=== PATIENT | male | born 1965 | race Caucasian/White ===

== ENCOUNTER 2021-01-21 23:28 | Inpatient (IN) | payer OTHER ==
[2021-01-22] MEDS ORDERED: ONDANSETRON 4 MG/2 ML VIAL ONE (01:09)
[2021-01-22] MEDS ORDERED: NA CHLORIDE 0.9% 1,000 ML ONE ×2 (01:09→02:01)
[2021-01-22 01:10] LABS: Absolute Lymphocytes (CBC) 1.2 K/uL (0.7-4.9); Basophils % 0.2 % (0-1.3); Hematocrit 50.4 % (39.6-49.0); MPV 8.5 fL (7.6-11.3); RBC Red Blood Cell Count 5.65 M/uL (4.33-5.43)
[2021-01-22 01:18] LABS: ALT/SGPT 27 U/L (12-78); AST/SGOT 13 U/L (15-37); Albumin 4.5 g/dL (3.4-5.0); Alkaline Phosphatase 130 U/L (45-117); BUN Blood Urea Nitrogen 24 mg/dL (7-18); Bilirubin Direct 0.1 mg/dL (0-0.2); Bilirubin Total 0.7 mg/dL (0.2-1.0); Glucose Level 314 mg/dL (74-106); Lipase 94 U/L (73-393); Protein, Total 8.7 g/dL (6.4-8.2); Sodium Level 131 mmol/L (136-145); Troponin (Emerg Dept Use Only) < 0.02 ng/mL (0.0-0.045)
[2021-01-22 01:19] LABS: Bicarbonate 7 mmol/L (21-32)
--- NOTE | 2021-01-22 01:35 | EDPHYS ---
Physician Documentation [facility] Name: Kiel Contreras Age: 55 yrs Sex: Male : 1965 Arrival Date: 01/21/2021 Time: 23:28 Bed 7 Private MD: ED Physician Jose F Cook HPI: 01/22 01:35 This 55 yrs old Male presents to ER via Ambulatory with complaints of tw4 Vomiting. 01:35 The patient presents to the emergency department with nausea, that is moderate, tw4 vomiting. Onset: The symptoms/episode began/occurred today. Possible causes: flare up of bowel problem. The symptoms are aggravated by nothing. The symptoms are alleviated by nothing. Associated signs and symptoms: The patient has no apparent associated signs or symptoms. Severity of symptoms: At their worst the symptoms were moderate in the emergency department the symptoms are unchanged. The patient has not experienced similar symptoms in the past. Historical: - Allergies: 00:17 No Known Allergies; em - PMHx: 00:17 Diabetes - NIDDM; em - PSHx: 00:17 None; em - Immunization history:: Adult Immunizations up to date. - Social history:: Smoking status: Patient reports use of chewing tobacco. ROS: 01:35 Constitutional: Negative for fever, chills, and weight loss, Eyes: Negative for injury, tw4 pain, redness, and discharge, Cardiovascular: Negative for chest pain, palpitations, and edema, Respiratory: Negative for shortness of breath, cough, wheezing, and pleuritic chest pain, Back: Negative for injury and pain, MS/Extremity: Negative for injury and deformity, Skin: Negative for injury, rash, and discoloration, Neuro: Negative for headache, weakness, numbness, tingling, and seizure. 01:35 Abdomen/GI: Positive for nausea, vomiting, Negative for abdominal pain, nausea and vomiting, constipation, abdominal cramps, abdominal distension, anorexia, dysphagia, hematemesis, black/tarry stool, rectal pain, rectal bleeding, bowel incontinence, flatulence. Exam: 01:35 Constitutional: This is a well developed, well nourished patient who is awake, alert, tw4 and in no acute distress. Head/Face: Normocephalic, atraumatic. Chest/axilla: Normal chest wall appearance and motion. Nontender with no deformity. No lesions are appreciated. Cardiovascular: Regular rate and rhythm with a normal S1 and S2. No gallops, murmurs, or rubs. Normal PMI, no JVD. No pulse deficits. Respiratory: Lungs have equal breath sounds bilaterally, clear to auscultation and percussion. No rales, rhonchi or wheezes noted. No increased work of breathing, no retractions or nasal flaring. Abdomen/GI: Soft, non-tender, with normal bowel sounds. No distension or tympany. No guarding or rebound. No evidence of tenderness throughout. Skin: Warm, dry with normal turgor. Normal color with no rashes, no lesions, and no evidence of cellulitis. MS/ Extremity: Pulses equal, no cyanosis. Neurovascular intact. Full, normal range of motion. Neuro: Awake and alert, GCS 15, oriented to person, place, time, and situation. Cranial nerves II-XII grossly intact. Motor strength 5/5 in all extremities. Sensory grossly intact. Cerebellar exam normal. Normal gait. Vital Signs: 00:16 BP 124 / 73; Pulse 124; Resp 18; Temp 98.7; Pulse Ox 99% on R/A; Weight 83.46 kg; em Height 5 ft. 8 in. (172.72 cm); Pain 0/10; 01:20 BP 150 / 69; Pulse 123; Resp 18; Pulse Ox 100% on R/A; jb4 02:30 BP 118 / 86; Pulse 122; Resp 17; Pulse Ox 99% on R/A; jb4 00:16 Body Mass Index 27.98 (83.46 kg, 172.72 cm) em MDM: 00:22 Patient medically screened. tw4 01:36 Differential diagnosis: Nonspecific abd pain, gastritis, cholecystitis. Data reviewed: tw4 vital signs, nurses notes. Data interpreted: Pulse oximetry: Interpretation: normal. Counseling: I had a detailed discussion with the patient and/or guardian regarding: the historical points, exam findings, and any diagnostic results supporting the discharge/admit diagnosis, lab results. Special discussion: Based on the patient's Hx, exam, and Dx evaluation, there is no indication for emergent surgery or inpatient Tx. It is understood by the patient/guardian that if the Sx's persist or worsen they need to return immediately for re-evaluation. I discussed with the patient/guardian in detail that at this point there is no indication for admission to the hospital. It is understood, however, that if the symptoms persist or worsen the patient needs to return immediately for re-evaluation. 01:38 Physician consultation: Jay Ayers MD was contacted at 01:29, and will see patient [email or web address] in ED. 01/22 00:18 Order name: Basic Metabolic Panel; Complete Time: 01:51 01/22 01:29 Interpretation: Normal except: NA 131; CL 93; CO2 7; GLUC 314; BUN 24; CRE 1.80; GFR 39.01/22 00:18 Order name: CBC with Diff; Complete Time: 03:35 01/22 01:29 Interpretation: Normal except: WBC 20.20; RBC 5.65; HCT 50.4; ABBY% 87.9; LYM% 6.0; PLT tw4 538. 01/22 00:18 Order name: Hepatic Function; Complete Time: 01:51 01/22 01:29 Interpretation: Normal except: AST 13; ALK 130; TP 8.7; GLOB 4.2. 01/22 00:18 Order name: Lipase; Complete Time: 01:51 01/22 01:29 Interpretation: Within normal limits: LIP 94. 01/22 00:18 Order name: Troponin (emerg Dept Use Only); Complete Time: 01:51 01/22 01:29 Interpretation: Within normal limits: TROPED < 0.02. 01/22 01:12 Order name: Manual Differential; Complete Time: 03:35 EDMS 01/22 01:23 Order name: COVID-19 : Document "Date of Symptom Onset" if Symptomatic. em 01/22 01:33 Order name: Acetone, Serum; Complete Time: 01:51 01/22 01:33 Order name: ABG 01/22 01:33 Order name: Blood Culture Adult (2) 01/22 01:33 Order name: Procalcitonin; Complete Time: 02:37 01/22 01:34 Order name: ABG Arterial Blood Gas; Complete Time: 03:35 EDMS 01/22 01:34 Order name: Lactate; Complete Time: 03:35 la1 01/22 01:38 Order name: Magnesium la1 01/22 01:38 Order name: Phosphorus la1 01/22 01:41 Order name: Phosphorus; Complete Time: 01:51 EDMS 01/22 01:41 Order name: Magnesium; Complete Time: 01:51 EDMS 01/22 02:44 Order name: Glucose, Ancillary Testing; Complete Time: 02:53 EDMS 01/22 03:40 Order name: SARS-COV-2 RT PCR; Complete Time: 04:06 EDMS 01/22 03:52 Order name: Glucose, Ancillary Testing; Complete Time: 04:00 EDMS 01/22 04:48 Order name: Glucose, Ancillary Testing EDMS 01/22 05:01 Order name: CBC with Automated Diff EDMS 01/22 05:27 Order name: Hemoglobin A1c EDMS 01/22 05:45 Order name: Basic Metabolic Panel EDMS 01/22 05:45 Order name: Lipid Profile EDMS 01/22 05:45 Order name: Glucose, Ancillary Testing EDMS 01/22 06:54 Order name: Glucose, Ancillary Testing EDMS 01/22 08:00 Order name: Glucose, Ancillary Testing EDMS 01/22 00:18 Order name: IV Saline Lock; Complete Time: 00:58 tw4 01/22 00:18 Order name: Labs collected and sent; Complete Time: 00:58 tw4 01/22 00:18 Order name: EKG; Complete Time: 00:19 tw4 01/22 01:33 Order name: CT Abd/Pelvis - Without Contrast tw4 01/22 01:38 Order name: Chest Single View XRAY la1 01/22 07:15 Order name: RAD EDMS 01/22 08:47 Order name: Glucose, Ancillary Testing EDMS 01/22 09:33 Order name: Basic Metabolic Panel EDMS 01/22 10:41 Order name: Glucose, Ancillary Testing EDMS 01/22 11:45 Order name: Glucose, Ancillary Testing EDMS 01/22 13:40 Order name: Basic Metabolic Panel EDMS EC:44 Rate is 116 beats/min. Rhythm is regular. QRS [place] is Normal. SC interval is normal. tw4 QRS interval is normal. QT interval is normal. No Q waves. T waves are Inverted in lead aVL. No ST changes noted. Clinical impression: NSR w/ Non-specific ST/T Changes. Interpreted by me. Reviewed by me. Administered Medications: 00:58 Drug: NS 0.9% 1000 ml Route: IV; Rate: 1 bolus; Site: left antecubital; jb4 02:00 Follow up: Response: No adverse reaction; IV Status: Completed infusion; IV Intake: jb4 1000ml 00:58 Drug: Zofran (Ondansetron) 4 mg Route: IVP; Site: left antecubital; jb4 01:30 Follow up: Response: No adverse reaction; Marked relief of symptoms; Nausea is decreasedjb4 01:35 CANCELLED (Other Intervention Used): NS 0.9% 1000 ml IV at 1 bolus Per protocol; 1000 la1 mL bolus 02:35 Drug: Insulin Drip - (Insulin Regular Human 100 units, NS 0.9% 100 ml) {Co-Signature: erlin [email or web address] (Ammy Vega RN).} Route: IV; Rate: calculated rate; Site: left antecubital; 03:24 Follow up: IV Status: Infusion continued upon admission jb4 02:35 Drug: NS 0.9% (30 ml/kg) 30 ml/kg Route: IV; Rate: bolus; Site: right antecubital; jb4 02:40 Drug: Rocephin (cefTRIAXone) 1 grams Route: IV; Rate: calculated rate; Site: right jb4 antecubital; 02:45 Follow up: Response: No adverse reaction; IV Status: Completed infusion; IV Intake: [id number] 03:39 Not Given (Other Intervention Used): NS 0.9% 1000 ml IV at 125 ml/hr continuous jb4 Disposition: 01/22/21 01:34 Hospitalization ordered by Jay Ayers for Inpatient Admission. Preliminary diagnosis is Diabetes mellitus due to underlying condition with ketoacidosis without coma. - Bed requested for [facility] ER HOLD. - Status is Inpatient Admission. hb - Condition is Stable. - Problem is new. - Symptoms are unchanged. Signatures: Dispatcher [employer] Blair Thibodeaux, RN RN Alvarado Elizabeth FNP-C FNP-Cla1 Aniyah Curry RN RN Mirta Hamilton RN RN Javed Estes RN RN jb4 Jose F Cook MD MD tw4 Ammy Vega RN lp1 Corrections: (The following items were deleted from the chart) 01:35 01:34 NS 0.9% 1000 ml IV at 1 bolus Per protocol; 1000 mL bolus ordered. jb4 la1 01:41 01:39 Magnesium ordered. EDMS EDMS 01:41 01:39 Phosphorus ordered. EDMS EDMS 01:52 01:31 Abdomen Pelvis W Con+CT.RAD.BRZ ordered. EDMS EDMS 04:09 01:34 Hospitalization Ordered by Jay Ayers MD for Inpatient Admission. Preliminary cg diagnosis is Diabetes mellitus due to underlying condition with ketoacidosis without coma. Bed requested for Intensive Care Unit. Status is Inpatient Admission. Condition is Stable. Problem is new. Symptoms are unchanged. tw4 18:34 04:09 01/22/2021 01:34 Hospitalization Ordered by Jay Ayers MD for Inpatient hb Admission. Preliminary diagnosis is Diabetes mellitus due to underlying condition with ketoacidosis without coma. Bed requested for [facility] ER HOLD. Status is Inpatient Admission. Condition is Stable. Problem is new. Symptoms are unchanged. cg
--- NOTE | 2021-01-22 01:35 | ER ---
Nurse's Notes [facility] Name: Kiel Contreras Age: 55 yrs Sex: Male : 1965 Arrival Date: 01/21/2021 Time: 23:28 Bed 7 Private MD: Diagnosis: Diabetes mellitus due to underlying condition with ketoacidosis without coma Presentation: 01/22 00:16 Chief complaint: Patient states: N/V and dizziness since this morning, denies abdominal em pain or fever. Coronavirus screen: Client denies travel out of the [place] in the last 14 days. Ebola Screen: Patient negative for fever greater than or equal to 101.5 degrees Fahrenheit, and additional compatible Ebola Virus Disease symptoms Patient denies exposure to infectious person. Patient denies travel to an Ebola-affected area in the 21 days before illness onset. No symptoms or risks identified at this time. Initial Sepsis Screen: Does the patient have a suspected source of infection? No. Patient's initial sepsis screen is negative. Initial Sepsis Screen: Does the patient meet any 2 criteria? HR > 90 bpm. No. Patient's initial sepsis screen is negative. Risk Assessment: Do you want to hurt yourself or someone else? Patient reports no desire to harm self or others. Onset of symptoms was January 22, 2021. 00:16 Method Of Arrival: Ambulatory em 00:16 Acuity: MELODIE 2 em Historical: - Allergies: 00:17 No Known Allergies; em - PMHx: 00:17 Diabetes - NIDDM; em - PSHx: 00:17 None; em - Immunization history:: Adult Immunizations up to date. - Social history:: Smoking status: Patient reports use of chewing tobacco. Screenin:15 Abuse screen: Denies threats or abuse. Nutritional screening: No deficits noted. jb4 Tuberculosis screening: No symptoms or risk factors identified. Fall Risk None identified. Assessment: 00:15 General: Appears in no apparent distress. uncomfortable, Behavior is calm, cooperative, jb4 appropriate for age. Pain: Denies pain. Neuro: Level of Consciousness is awake, alert, obeys commands, Oriented to person, place, time, situation. Cardiovascular: Patient's skin is warm and dry. Respiratory: Airway is patent Respiratory effort is even, unlabored, Respiratory pattern is regular, symmetrical. GI: Abdomen is flat, Reports nausea, vomiting. : No signs and/or symptoms were reported regarding the genitourinary system. EENT: No signs and/or symptoms were reported regarding the EENT system. Derm: Skin is intact, Skin is pink, warm \T\ dry. Musculoskeletal: Circulation, motion, and sensation intact. Range of motion: intact in all extremities. 01:03 Reassessment: Patient appears in no apparent distress at this time. Patient and/or jb4 family updated on plan of care and expected duration. Pain level reassessed. Patient is alert, oriented x 3, equal unlabored respirations, skin warm/dry/pink. 01:25 Reassessment: Admitting provider at the bedside. jb4 01:33 Reassessment: Pt's anion gap calculated to be 31. provider notified, see MAR for jb4 additional. orders. 02:30 Reassessment: Patient appears in no apparent distress at this time. Patient and/or jb4 family updated on plan of care and expected duration. Pain level reassessed. Patient is alert, oriented x 3, equal unlabored respirations, skin warm/dry/pink. Vital Signs: 00:16 BP 124 / 73; Pulse 124; Resp 18; Temp 98.7; Pulse Ox 99% on R/A; Weight 83.46 kg; em Height 5 ft. 8 in. (172.72 cm); Pain 0/10; 01:20 BP 150 / 69; Pulse 123; Resp 18; Pulse Ox 100% on R/A; jb4 02:30 BP 118 / 86; Pulse 122; Resp 17; Pulse Ox 99% on R/A; jb4 00:16 Body Mass Index 27.98 (83.46 kg, 172.72 cm) em ED Course: 01/21 23:28 Patient arrived in ED. am4 04/05 00:15 Patient has correct armband on for positive identification. Bed in low position. Call jb4 light in reach. Side rails up X 1. 00:17 Triage completed. em 00:17 Arm band placed on. em 00:18 Jose F Cook MD is Attending Physician. tw4 00:46 Javed Estes, RN is Primary Nurse. jb4 01:11 Notified ED physician of a critical lab result(s). WBC 20.2. lp1 01:15 Inserted saline lock: 20 gauge in left antecubital area, using aseptic technique. Blood ds4 collected. 01:33 Jay Ayers MD is Hospitalizing Provider. tw4 01:55 CT Abd/Pelvis - Without Contrast In Process Unspecified. EDMS 02:15 Missed attempt(s): 18 gauge in right antecubital area. 22 gauge in right hand. Bleeding ds4 controlled, band aid applied, catheter tip intact. 03:00 No provider procedures requiring assistance completed. Patient admitted, IV remains in jb4 place. Administered Medications: 00:58 Drug: NS 0.9% 1000 ml Route: IV; Rate: 1 bolus; Site: left antecubital; jb4 02:00 Follow up: Response: No adverse reaction; IV Status: Completed infusion; IV Intake: jb4 1000ml 00:58 Drug: Zofran (Ondansetron) 4 mg Route: IVP; Site: left antecubital; jb4 01:30 Follow up: Response: No adverse reaction; Marked relief of symptoms; Nausea is decreasedjb4 01:35 CANCELLED (Other Intervention Used): NS 0.9% 1000 ml IV at 1 bolus Per protocol; 1000 la1 mL bolus 02:35 Drug: Insulin Drip - (Insulin Regular Human 100 units, NS 0.9% 100 ml) {Co-Signature: jb4 lp1 (Ammy Vega RN).} Route: IV; Rate: calculated rate; Site: left antecubital; 03:24 Follow up: IV Status: Infusion continued upon admission jb4 02:35 Drug: NS 0.9% (30 ml/kg) 30 ml/kg Route: IV; Rate: bolus; Site: right antecubital; jb4 02:40 Drug: Rocephin (cefTRIAXone) 1 grams Route: IV; Rate: calculated rate; Site: right jb4 antecubital; 02:45 Follow up: Response: No adverse reaction; IV Status: Completed infusion; IV Intake: [id number] 03:39 Not Given (Other Intervention Used): NS 0.9% 1000 ml IV at 125 ml/hr continuous jb4 Intake: 02:00 IV: 1000ml; Total: 1000ml. jb4 02:45 IV: 10ml; Total: 1010ml. jb4 Outcome: 01:34 Decision to Hospitalize by Provider. tw4 03:00 Admitted to ER Hold. Please see [employer] for further documentation. jb4 03:00 Condition: stable 03:00 Discharge instructions given to patient, Instructed on the need for admit, Demonstrated understanding of instructions. 18:34 Patient left the ED. Signatures: Dispatcher [employer] Blair Thibodeaux, RN RN Ammy Vega RN RN lp1 Andre Ceja ds4 Mirta Hamilton RN RN Javed Estes RN RN jb4 Jose F Cook MD MD 4 Saray Armenta [facility] Alvarado Davila [facility] Ammy Vega RN lp1
[2021-01-22 01:50] LABS: Magnesium 2.5 mg/dL (1.8-2.4); Phosphorus 7.3 mg/dL (2.5-4.9)
[2021-01-22] MEDS ORDERED: NA CHLORIDE 0.9% 100 ML ONE (02:00)
[2021-01-22] MEDS ORDERED: INSULIN -REGULAR HUMAN 50 UNIT/0.5 ML ML ONE (02:00)
[2021-01-22] MEDS ORDERED: CEFTRIAXONE/SWI 1gm 1 GM/10 ML SYR ONE (02:01)
[2021-01-22 02:04] LABS: Arterial Blood Carboxyhemoglob 1.6 % (0-1.5); Blood O2 Saturation 97.6 % (92-98.5)
--- NOTE | 2021-01-22 02:05 | P.HP ---
Certification for Inpatient Patient admitted to: Inpatient With expected LOS: >2 Midnights Patient will require the following post-hospital care: None Practitioner: I am a practitioner with admitting privileges, knowledge of patient current condition, hospital course, and medical plan of care. Services: Services provided to patient in accordance with Admission requirements found in Title 42 Section 412.3 of the Code of Federal Regulations <Alvarado Davila - Last Filed: 01/22/21 01:59> Patient History Date of Service: 01/22/21 Primary Care Provider: [facility] Reason for admission: DKA History of Present Illness: 55-year-old male with history of recently diagnosed diabetes mellitus type 2 prescribed metformin and recently jardiance presents emergency department for nausea/vomiting and dizziness. Patient initially noted to be tachycardic with heart rate around 120 to. Initially chemistry revealed CO2 of 7, further workup performed in the emergency department reveals white blood cell count 20 point to sodium 131, chloride 93, CO2 7 creatinine 1.8 GFR 39, glucose 314 moderate acetone serum. ABG, UA, chest x-ray, CT abdomen pelvis pending at this time anion gap 31. Patient reports waking up this morning with nausea and vomiting which is continue throughout the day, denies any abdominal pain, diarrhea or any other symptoms, will admit to the ICU for further management of DKA. - Past Medical/Surgical History Diabetic: Yes -: Diabetes mellitus type 2 -: none Psychosocial/ Personal History: Patient works for [employer], lives with his and family - Family History Family History: Reviewed- Non-Contributory - Social History Smoking Status: Never smoker Alcohol use: Yes CD- Drugs: No Caffeine use: Yes Place of Residence: Home <Alvarado Davila - Last Filed: 01/22/21 01:59> Date of Service: 01/22/21 <Jay Ayers - Last Filed: 01/31/21 05:48> Allergies No Known Allergies Allergy (Unverified 01/22/21 02:51) Home Medications: Insulin Glargine,Hum.rec.anlog [Lantus] 20 unit SQ DAILY AFTER SUPPER #2 syr 01/22/21 Metformin HCl [Glucophage*] 500 mg PO BID #60 tab 01/22/21 lisinopriL [Lisinopril] 20 mg PO DAILY 01/22/21 Review of Systems 10-point ROS is otherwise unremarkable General: Weakness, Malaise Gastrointestinal: Nausea, Vomiting <Alvarado Davila - Last Filed: 01/22/21 01:59> Physical Examination - Physical Exam General: Alert, In no apparent distress HEENT: Atraumatic, PERRLA, Other (Mucous membranes dry), EOMI, Sclerae nonicteric Neck: Supple, 2+ carotid pulse no bruit, No LAD, Without JVD or thyroid abnormality Respiratory: Clear to auscultation bilaterally, Normal air movement Cardiovascular: Regular rate/rhythm, Normal S1 S2 Gastrointestinal: Normal bowel sounds, No tenderness Musculoskeletal: No tenderness Integumentary: No rashes Neurological: Normal speech, Normal strength at 5/5 x4 extr, Normal tone, Normal affect - Studies Laboratory Data (last 24 hrs) 01/22/21 01:38: Phosphorus Cancelled, Magnesium Cancelled 01/22/21 00:42: WBC 20.20 H*, Hgb 16.7, Hct 50.4 H, Plt Count 538 H 01/22/21 00:42: Sodium 131 L, Potassium 5.0, BUN 24 H, Creatinine 1.80 H, Glucose 314 H, Phosphorus 7.3 H, Magnesium 2.5 H, Total Bilirubin 0.7, AST 13 L, ALT 27, Alkaline Phosphatase 130 H, Lipase 94 <Alvarado Davila - Last Filed: 01/22/21 01:59> Assessment and Plan - Problems (Diagnosis) (1) Metabolic acidosis Onset Date: ~01/22/21 Status: Acute (2) DKA (diabetic ketoacidoses) Onset Date: ~01/22/21 Status: Acute Qualifiers: Diabetes mellitus type: type 2 Diabetes mellitus complication detail: without coma Qualified Code(s): E11.10 - Type 2 diabetes mellitus with ketoacidosis without coma (3) EVER (acute kidney injury) Onset Date: ~01/22/21 Status: Acute - Plan -Admit to the ICU for further management of DKA -C/W q.1h Accu-Cheks, q.4h BMP until anion gap less than 12, patient tolerating p.o. and sugar less than 200 then transition to long-acting insulin/diabetic diet -C/W aggressive rehydration with half normal saline, switch to D5 half NS when sugars less than 200 until anion gap is closed and patient is off insulin drip -leukocytosis white blood cell count 20, likely reactive and related to dehydration, continue with Rocephin at this time. Blood cultures, UA, CT abdomen pelvis, chest x-ray pending. -nephrology consulted for EVER/metabolic acidosis assistance. -A1c, lipid panel with morning labs, patient also was recently prescribed Jardiance, this could have contributed to DKA, may need to transition to insulin at discharge. -DVT prophylaxis Lovenox 40 mg subcutaneous once daily. Full code anticipate clinical improvement in the next 48-72 hr. Discharge Plan: Home Plan to discharge in: Greater than 2 days - Advance Directives Does patient have a Living Will: No Does patient have a Durable POA for Healthcare: No - Code Status/Comfort Care Code Status Assessed: Yes (Full code) Critical Care: No Time Spent Managing Pts Care (In Minutes): 55 <Alvarado Davila - Last Filed: 01/22/21 01:59> Agree with plan of care as mentioned above. Anticipate discharge home later today <Jay Ayers - Last Filed: 01/31/21 05:48>
[2021-01-22] MEDS ORDERED: INSULIN -REGULAR HUMAN 100 UNIT in NA CHLORIDE 0.9% 100 ML IV SCH (02:54)
[2021-01-22] MEDS ORDERED: NACHLORIDE 0.45% 1,000 ML IV SCH ×2 (02:54→13:30)
[2021-01-22] MEDS ORDERED: ONDANSETRON 4 MG/2 ML VIAL IV PRN (02:54)
[2021-01-22 03:09] LABS: Blood Morphology Comment NOT SEEN (NOT SEEN); Platelet Estimate INCR
[2021-01-22] MEDS ORDERED: SODIUM CHLORIDE 0.9% 10ML INJ IV PRN (03:31)
[2021-01-22] MEDS ORDERED: FAMOTIDINE 20 MG/2 ML VIAL IV ONE ×2 (03:42→03:51)
[2021-01-22 03:51] VITALS: BMI 27.0
[2021-01-22] MEDS ORDERED: NACHLORIDE 0.45% 1,000 ML IV ONE (03:51)
[2021-01-22] MEDS ORDERED: D5 0.45 NS 1,000 ML IV ONE (04:21)
[2021-01-22] MEDS: D5 0.45 NS 1,000 ML IV SCH ×2 (04:38→09:34)
[2021-01-22 04:59] LABS: Absolute Lymphocytes (CBC) 1.5 K/uL (0.7-4.9); Basophils % 0.3 % (0-1.3); Hematocrit 41.2 % (39.6-49.0); Lymphocytes % 8.9 % (15.3-44.8); MPV 7.8 fL (7.6-11.3); RBC Red Blood Cell Count 4.68 M/uL (4.33-5.43)
--- NOTE | 2021-01-22 07:14 | RAD REPORT ---
EXAM DESCRIPTION: RAD - Chest Single View - 01/22/2021 1:58 am CLINICAL HISTORY: leukocytosis, dka, shortness of breath COMPARISON: October 2018 TECHNIQUE: AP portable chest image was obtained 01/22/2021 1:58 am . FINDINGS: Lungs are clear. Lung volumes are low accentuating baseline interstitial pattern. Heart an d vasculature are normal. No measurable pleural effusion and no pneumothorax. No acute bony abnormali ty seen. No acute aortic findings suspected. IMPRESSION: No acute cardiopulmonary process. No significant change from comparison study.
--- NOTE | 2021-01-22 08:55 | EKG ---
Test Date: 2021-01-22 Test Time: 00:31:08 Carpenter'S Helper: JOSE FRANCISCO MEASUREMENT RESULTS: Intervals: Rate: 116 OK: 156 QRSD: 86 QT: 348 QTc: 483 [place]: P: 62 OK: 156 QRS: -87 T: 71 INTERPRETIVE STATEMENTS: Sinus tachycardia Left axis deviation Inferior infarct, age undetermined Abnormal ECG No previous ECG available for comparison Electronically Signed On 01-22-21 08:55:08 CDT by Simone Melissa
[2021-01-22] MEDS ORDERED: ENOXAPARIN 40 MG/0.4 ML SQ SCH (09:00)
[2021-01-22] MEDS ORDERED: CEFTRIAXONE 1 GM/NS 50 ML 50 ML IV SCH (09:00)
[2021-01-22] MEDS ORDERED: PANTOPRAZOLE 40 MG INJ IVP SCH (09:00)
[2021-01-22 09:33] LABS: Potassium 3.8 mmol/L (3.5-5.1)
[2021-01-22] MEDS ORDERED: ENOXAPARIN 40 MG/0.4 ML SQ ONE (10:37)
[2021-01-22] MEDS ORDERED: PANTOPRAZOLE 40 MG INJ ONE (10:37)
--- NOTE | 2021-01-22 10:49 | RAD REPORT ---
EXAM DESCRIPTION: CT - Abdomen Pelvis Wo Contrast - 01/22/2021 2:19 am COMPARISON: None. CLINICAL HISTORY: HS MAIN LEUKOCYTOSIS;Nausea / vomiting TECHNIQUE: CT of the abdomen and pelvis was acquired without IV contrast material, according to the renal stone protocol. Coronal and sagittal reconstructions were obtained. Automated exposure contro l was utilized on this examination as a dose lowering technique. FINDINGS: Lung bases: Clear. *Limited evaluation of the solid organs due to lack of IV contrast. Liver: Normal. Gallbladder and biliary: Normal gallbladder. Unremarkable biliary tree. Pancreas: Normal. Spleen: Normal. Adrenal glands: Normal. Kidneys and ureters: No renal or ureteral calculi are present. A left renal cyst measures 2.3 cm. A r ight renal cyst measures 3.2 cm. Stomach and Small Bowel: The stomach and small bowel are normal. Urinary bladder: Normal. Prostate/Male Urogenital: Normal. Colon and Appendix: The colon is unremarkable. No evidence of appendicitis. Peritoneal cavity: No ascites or free air. Retroperitoneum and lymph nodes: Normal. Vascular: Mild multivessel calcified atherosclerosis. 9 mm calcified splenic artery aneurysm. Musculoskeletal and soft tissues: Soft tissues are unremarkable. No aggressive bone lesions. No com pression fracture. IMPRESSION: No acute intra-abdominal abnormality. Electronically signed by: Sean Martinez MD 01/22/2021 2:06 AM CDT Due to temporary technical issues with the PACS/Fluency reporting system, reports are being signed by the in house radiologists without review as a courtesy to insure prompt reporting. The interpreting radiologist is fully responsible for the content of the report.
[2021-01-22] MEDS ORDERED: INSULIN GLARGINE 100 UNITS/ML SQ ONE ×2 (12:44→13:30)
[2021-01-22 13:39] LABS: Potassium 3.9 mmol/L (3.5-5.1)
--- NOTE | 2021-01-22 16:58 | P.DS ---
Discharge Date: 01/22/21 Primary Care Provider: HARDY ray Disposition: ROUTINE DISCHARGE Discharge Condition: GOOD Reason for Admission: DKA Brief History of Present Illness: Patient is a 55-year-old male with history of recently diagnosed diabetes mellitus type 2 prescribed metformin and recently jardiance presents emergency department for nausea/vomiting and dizziness. Patient initially noted to be tachycardic with heart rate around 120 to. Initially chemistry revealed CO2 of 7, further workup performed in the emergency department reveals white blood cell count 20 point to sodium 131, chloride 93, CO2 7 creatinine 1.8 GFR 39, glucose 314 moderate acetone serum. ABG, UA, chest x-ray, CT abdomen pelvis pending at this time anion gap 31. Patient reports waking up this morning with nausea and vomiting which is continue throughout the day, denies any abdominal pain, diarrhea or any other symptoms, will admit to the ICU for further management of DKA. Hospital Course: Patient's DKA was corrected. Patient is clinically doing well. At this time patient is stable for discharge home. Vital Signs/Physical Exam: Temp Pulse Resp BP Pulse Ox 98.4 F 102 H 15 128/84 97 01/22/21 14:00 01/22/21 15:57 01/22/21 15:57 01/22/21 15:57 01/22/21 15:57 General: Alert, In no apparent distress, Oriented x3 Laboratory Data at Discharge: WBC 16.50 K/uL (4.3-10.9) H D 01/22/21 04:35 Hgb 14.3 g/dL (13.6-17.9) 01/22/21 04:35 Hct 41.2 % (39.6-49.0) D 01/22/21 04:35 Plt Count 417 K/uL (152-406) H D 01/22/21 04:35 Sodium 136 mmol/L (136-145) 01/22/21 13:08 Potassium 3.9 mmol/L (3.5-5.1) 01/22/21 13:08 BUN 17 mg/dL (7-18) 01/22/21 13:08 Creatinine 1.18 mg/dL (0.55-1.3) 01/22/21 13:08 Glucose 178 mg/dL (74-106) H 01/22/21 13:08 Phosphorus Cancelled 01/22/21 01:38 Magnesium Cancelled 01/22/21 01:38 Total Bilirubin 0.7 mg/dL (0.2-1.0) 01/22/21 00:42 AST 13 U/L (15-37) L 01/22/21 00:42 ALT 27 U/L (12-78) 01/22/21 00:42 Alkaline Phosphatase 130 U/L (45-117) H 01/22/21 00:42 Triglycerides 78 mg/dL (<150) 01/22/21 04:35 Cholesterol 161 mg/dL (<200) 01/22/21 04:35 HDL Cholesterol 40 mg/dL (40-60) 01/22/21 04:35 Cholesterol/HDL Ratio 4.03 01/22/21 04:35 Lipase 94 U/L (73-393) 01/22/21 00:42 Home Medications: Insulin Glargine,Hum.rec.anlog [Lantus] 20 unit SQ DAILY AFTER SUPPER #2 syr 01/22/21 Metformin HCl [Glucophage*] 500 mg PO BID #60 tab 01/22/21 lisinopriL [Lisinopril] 20 mg PO DAILY 01/22/21 New Medications: Metformin HCl [Glucophage*] 500 mg PO BID #60 tab Insulin Glargine,Hum.rec.anlog [Lantus] 20 unit SQ DAILY AFTER SUPPER #2 syr Physician Discharge Instructions: OK TO DC IV AND DC HOME FOLLOW-UP WITH PRIMARY CARE PROVIDER IN 1-2 WEEKS FOLLOW-UP WITH [facility] firer/fireman IN 1-2 WEEKS RETURN TO THE ER IF symptoms worsen CALL or TEXT DR. FULLER AT [phone] IF ANY QUESTIONS REGARDING HOSPITAL STAY. PLEASE CALL THE FLOOR AT [phone] IF ANY MEDICATION OR NURSING QUESTIONS. Diet: ADA Activity: Fall precautions Followup: Unknown,U [Primary Care Provider] - Time spent managing pt's care (in minutes): 35
[2021-01-22 17:11] VITALS: BP 131/84; TEMP 98.1
[2021-01-22 18:54] VITALS: O2SAT 99
--- NOTE | 2021-01-22 21:57 | CON ---
Date of Consultation: 01/22/2021 Chief Complaint: DKA, metabolic acidosis secondary to uncontrolled diabetes. History Of Present Illness: The patient was admitted for DKA. He was found to have prerenal azotemi a. Sodium level was 131, GFR 31, creatinine 1.8. The patient had nonoliguric urine output and he wa s treated with insulin for DKA. Bicarbonate was 7, improved to 16. Subsequently, lactic acid was no rmal. The patient prior to this admission was recently diagnosed with diabetes type 2 and was starte d on metformin. He came to the emergency room for nausea, vomiting, and dizziness. He was found to have elevated white count. Primarily, glucose was 314 and sodium 131. Serum acetone was moderate. Chest x-ray and CT scan of the abdomen and pelvis were done. The patient reports waking up this morn ing with nausea and vomiting. He denied abdominal pain, melena, or hematemesis. Review of Systems: Constitutional: Denies fever or chills. Eyes: Denies vision changes. Ears, Nose, Mouth, and Throat: Denies sore throat or earache. Respiratory: Denies PND or orthopnea. Cardiovascular: Denies chest pain or palpitation. GI: He has nausea and vomiting. Denies diarrhea, melena, or hematemesis. : Denies dysuria or hematuria. All other systems reviewed and all are negative. Past Medical History: Diabetes mellitus type 2, hypertension. Social History: Denies tobacco, alcohol., or illicit drugs. Family History: Noncontributory. No kidney disease in the family. Physical Examination: General: The patient is alert, not in apparent distress. Eyes: Anicteric sclerae. EOMI. Ears, Nose, and Throat: Oral mucosa moist. No pallor. Neck: Supple. No bruits. Lungs: Diminished breath sounds at bases. Heart: S1, S2. Abdomen: Soft, benign. Extremities: No edema. Neurologic: Moving extremity. Cranial nerves intact. Psychiatric: The patient is alert and oriented x3. Laboratory Data: WBC 20.2, hemoglobin 16.7, hematocrit 50.4, platelet count 538. Sodium 131, potass ium 5.0, BUN 24, creatinine 1.8, glucose 314, phosphorus 7.3, magnesium 2.5, AP 130, lipase 94. Impression And Plan: Metabolic acidosis, diabetic ketoacidosis, acute kidney injury, nonoliguric ass ociated with electrolyte abnormalities. Potassium is elevated secondary to diabetic ketoacidosis and electrolyte shifts. Phosphorus is elevated. Recommend to check CK level to rule out rhabdomyolysis . Urinalysis will be done to check for abnormal urinary sediment. Recommend CT scan to rule out obs tructive uropathy. Blood culture was obtained and chest x-ray is pending. Continue insulin for diabetic ketoacidosis. Monitor electrolytes. Adjust replacement accordingly. EB/MODL Voice ID: [id number] Report ID: [id number]
[2021-01-23] MEDS ORDERED: CEFTRIAXONE/SWI 1gm 1 GM/10 ML SYR IV SCH
== END 2021-01-22 18:33 | disposition home or self-care (01) | DRG 638 ==
LOC: ER 23:28 → ERHOLD 01-22 01:49
PROVIDERS: ADMIT Hospitalist; ATTEND Hospitalist
DX: E11.10 Type 2 diabetes mellitus with ketoacidosis without coma (principal); N17.9 Acute kidney failure, unspecified; F17.220 Nicotine dependence, chewing tobacco, uncomplicated; D72.829 Elevated white blood cell count, unspecified; I10 Essential (primary) hypertension; E86.0 Dehydration; R00.0 Tachycardia, unspecified; Z79.4 Long term (current) use of insulin; Z20.822 Contact with and (suspected) exposure to COVID-19
CPT/HCPCS: 36415; 71045; 74176; 80048; 80061; 80076; 82010; 82805; 82947; 83036; 83605; 83690; 83735; 84100; 84145; 84484; 85025; 87040; 93005; 99285; C9113; J0696; J1650; J1815; J2405; J7030; J7799; U0003